=== PATIENT | female | born 1945 | race Caucasian/White ===

== ENCOUNTER 2018-08-03 09:11 | Emergency (ER) | payer MEDICARE, BC ==
[~2018-08-03] VITALS: Ht 172.7 cm; Wt 109.8 kg
[~2018-08-03 09:11] MED LIST: ATOR20 PO; DIPH50 PO; METO50ER PO; NYST100TC TOP; OMEP20ER; OXYACE5T PO; PROM25 PO; TAMS.4ER PO
== END 2018-08-03 11:57 | disposition home or self-care (01) ==
LOC: ER 09:11
DX: S01.81XA Laceration without foreign body of other part of head, initial encounter (principal); W01.198A Fall on same level from slipping, tripping and stumbling with subsequent striking against other object, initial encounter; I10 Essential (primary) hypertension; F17.210 Nicotine dependence, cigarettes, uncomplicated; Z79.899 Other long term (current) drug therapy
CPT/HCPCS: 12011; 99283-25

== ENCOUNTER → 2020-09-18 | Outpatient (CLI) | payer MEDICARE, BC ==
[2020-09-18 08:10] LABS: Source, Urine Clean Catch
[2020-09-18 11:20] LABS: Appearance, Urine Turbid (Clear); Bilirubin, Urine Neg (Neg); Blood, Urine 1+ (Neg); Color, Urine Yellow (P-Yellow); Glucose Qualitative, Urine Neg (Neg); Ketones, Urine Neg (Neg); Leukocyte Esterase, Urine Neg (Neg); Nitrite, Urine Neg (Neg); Protein, Urine Neg (Neg); Specific Gravity, Urine 1.025 (1.003-1.022); Urobilinogen, Urine 1+ (Normal)
[2020-09-18 11:29] LABS: Bacteria Many /hpf
[2020-09-18 11:30] LABS: Amorphous Heavy (0-Heavy)
[2020-09-18 11:31] LABS: Red Blood Cells, Urine 0-2 /hpf (0-2); Squamous Epithelial Cells Few /hpf (Few); White Blood Cells, Urine 0-2 /hpf (0-5)
== END | disposition home or self-care (01) ==
LOC: LAB 08:05 → LAB SHORT 08:05
PROVIDERS: Nurse Practitioner Family
DX: I10 Essential (primary) hypertension (principal)
CPT/HCPCS: 81001

== ENCOUNTER → 2022-11-05 | Outpatient (CLI) | payer MEDICARE, BC ==
[2022-11-05 09:04] LABS: Source, Urine Clean Catch
[2022-11-05 13:02] LABS: Appearance, Urine Clear (Clear); Bilirubin, Urine Neg (Neg); Blood, Urine Neg (Neg); Color, Urine Yellow (P-Yellow); Glucose Qualitative, Urine Neg (Neg); Ketones, Urine Neg (Neg); Leukocyte Esterase, Urine Neg (Neg); Nitrite, Urine Pos (Neg); Protein, Urine 1+ (Neg); Specific Gravity, Urine 1.015 (1.003-1.022); Urobilinogen, Urine 2+ (Normal); pH, Urine 6.5 (5.0-8.0)
[2022-11-05 13:15] LABS: Red Blood Cells, Urine Not Seen /hpf (0-2)
[2022-11-05 13:16] LABS: Bacteria Mod /hpf; Mucus Light (0-Heavy); Squamous Epithelial Cells Few /hpf (Few)
== END | disposition home or self-care (01) ==
LOC: LAB SHORT 08:30 → LAB 08:30
PROVIDERS: Nurse Practitioner Family
DX: I10 Essential (primary) hypertension (principal)
CPT/HCPCS: 81001; 87086

== ENCOUNTER → 2025-01-09 | Outpatient (CLI) | payer MEDICARE, BC ==
[2025-01-09 21:39] LABS: Creatinine, Urine Random 375.0 mg/dL (27.00-270.00); Microalb/Creat Ratio UR, Rand 5.013 mg/g (0.000-30.000); Microalbumin, Random Urine 18.8 mg/L (0.000-20.000)
== END ==
LOC: LAB SHORT 10:00 → LAB 10:00
PROVIDERS: Nurse Practitioner Family
DX: N18.31 Chronic kidney disease, stage 3a (principal)
CPT/HCPCS: 82043; 82570